=== PATIENT | female | born 1950 | race Caucasian/White ===

== ENCOUNTER 2018-07-15 14:26 | Outpatient (CLI) | payer MEDICARE, BC, SELFPAY ==
[2018-07-15 15:52] LABS: Abs Immature Grans 0.01 k/cumm (0.0-0.09); Absolute Basophil Count 0.07 k/cumm (0.0-0.2); Absolute Eosinophil Count 0.09 k/cumm (0.0-0.7); Absolute Lymphocyte Count 1.06 k/cumm (1.2-3.4); Basophils % 1.8; Eosinophils % 2.3; HCT 37.3 % (36.0-46.0); HGB 12.7 g/dL (12.0-15.5); Immature Grans % 0.3; Lymphocytes % 26.6; Mean Corpuscular Hemoglobin 33.2 pg (27.0-33.0); Mean Corpuscular Volume 97.6 fL (80-95); Mean Platelet Volume 10.8 fL (8.0-11.0); Platelet Count 156 x1000/uL (130-400); RBC 3.82 m/cumm (4.00-5.20); White Blood Cell Count 3.99 k/cumm (4.4-10.8)
[2018-07-15 15:54] LABS: Absolute Neutrophil Count 2.35 k/cumm (1.2-6.7)
== END 2018-07-15 14:46 ==
PROVIDERS: Visit Provider Internal Medicine Hematology & Oncology
DX: C50.919 Malignant neoplasm of unspecified site of unspecified female breast (principal)
CPT/HCPCS: 36415; 85025

== ENCOUNTER 2019-12-15 02:28 | Outpatient (RCR) | payer MEDICARE, BC, SELFPAY ==
[2019-12-15] MEDS: Denosumab 60 MG/ML SYR SC (11:55)
== END 2019-12-21 23:59 | disposition home or self-care (01) ==
LOC: INF 02:28
PROVIDERS: PCP Family Medicine; Visit Provider Family Medicine
DX: M81.8 Other osteoporosis without current pathological fracture (principal)
CPT/HCPCS: 96372; J0897

== ENCOUNTER 2020-02-27 12:58 | Outpatient (CLI) | payer MEDICARE, BC, SELFPAY ==
[2020-02-29 09:57] LABS: COVID-19 RT-PCR Result NEGATIVE (Negative)
== END 2020-02-27 13:18 ==
PROVIDERS: PCP Family Medicine; Visit Provider Family Medicine
DX: Z20.828 Contact with and (suspected) exposure to other viral communicable diseases (principal)
CPT/HCPCS: U0003

== ENCOUNTER 2020-06-13 03:00 | Outpatient (RCR) | payer MEDICARE, OTHER, SELFPAY ==
[2020-06-13] MEDS: Denosumab 60 MG/ML SYR SC (12:25)
== END 2020-06-20 23:59 | disposition home or self-care (01) ==
LOC: INF 03:00
PROVIDERS: PCP Family Medicine; Visit Provider Family Medicine
DX: M81.0 Age-related osteoporosis without current pathological fracture (principal)
CPT/HCPCS: 36415; 80053; 86304; 96372; 82378; 85025; 86300; J0897

== ENCOUNTER 2020-06-13 04:33 | Outpatient (CLI) | payer MEDICARE, OTHER, SELFPAY ==
[2020-06-13 12:20] LABS: Abs Immature Grans 0.01 10^3/uL (0.0-0.06); Absolute Basophil Count 0.07 10^3/uL (0.0-0.2); Absolute Eosinophil Count 0.12 10^3/uL (0.0-0.7); Absolute Lymphocyte Count 1.44 10^3/uL (1.2-3.4); Absolute Neutrophil Count 2.05 10^3/uL (1.2-6.7); Basophils % 1.7; Eosinophils % 2.9; HCT 38.3 % (36.0-46.0); Immature Grans % 0.2; Lymphocytes % 35.2; MCH 33.8 pg (27.0-33.0); MCHC 33.9 % (32.0-36.0); MCV 99.5 fL (80-95); Monocytes % 9.8; Neutrophils % 50.2; Nucleated RBC 0 %; Platelet Count 171 10^3/uL (130-400); RBC 3.85 10^6/uL (3.93-5.22); RDW-SD 47.6 fL; WBC 4.09 10^3/uL (4.4-10.8)
[2020-06-13 13:12] LABS: ALT 30 U/L (14-59); AST 26 U/L (15-37); Albumin 3.7 g/dL (3.4-5.0); Alkaline Phosphatase 82 U/L (46-116); Anion Gap 7.5 mmol/L (3-11); BUN 13 mg/dL (7-18); Bilirubin, Total 0.4 mg/dL (0.2-1.0); CO2 29.5 mmol/L (21.0-32.0); CREATININE 0.6 mg/dL (0.55-1.02); Calcium 9.8 mg/dL (8.5-10.1); Chloride 106 mmol/L (98-107); Glucose 81 mg/dL (74-106); Potassium 4.1 mmol/L (3.5-5.1); Sodium 143 mmol/L (136-145); Total Protein 6.9 g/dL (6.4-8.2)
[2020-06-13 18:33] LABS: CEA 0.6 ng/mL (See Note)
[2020-06-14 15:24] LABS: Cancer Ag 15-3 16 U/mL (<30)
== END 2020-06-13 04:34 | disposition home or self-care (01) ==
PROVIDERS: PCP Family Medicine; Visit Provider Family Medicine
DX: C50.911 Malignant neoplasm of unspecified site of right female breast (principal); M81.0 Age-related osteoporosis without current pathological fracture
CPT/HCPCS: 36415; 80053; 86304; 96372; 82378; 85025; 86300; J0897

== ENCOUNTER 2020-12-11 01:00 | Outpatient (RCR) | payer MEDICARE, OTHER, SELFPAY ==
[2020-12-11] MEDS: Denosumab 60 MG/ML SYR SC (13:18)
== END 2020-12-20 23:59 | disposition home or self-care (01) ==
LOC: INF 01:00
PROVIDERS: PCP Family Medicine; Visit Provider Family Medicine
DX: M81.8 Other osteoporosis without current pathological fracture (principal)
CPT/HCPCS: 96372; J0897

== ENCOUNTER 2021-06-11 01:48 | Outpatient (RCR) | payer MEDICARE, OTHER, SELFPAY ==
[2021-06-11] MEDS: Denosumab 60 MG/ML SYR SC (13:13)
== END 2021-06-20 23:59 | disposition home or self-care (01) ==
LOC: INF 01:48
PROVIDERS: PCP Family Medicine; Visit Provider Family Medicine
DX: M81.0 Age-related osteoporosis without current pathological fracture (principal)
CPT/HCPCS: 96372; J0897

== ENCOUNTER 2021-06-13 12:02 | Outpatient (CLI) | payer MEDICARE, OTHER, SELFPAY ==
[2021-06-13 16:18] LABS: ESR 7 mm/hr (0-30)
[2021-06-14 19:24] LABS: CRP, High Sensitivity 0.42 mg/L (See Note)
== END 2021-06-13 12:03 | disposition home or self-care (01) ==
LOC: LBO 12:03
PROVIDERS: PCP Family Medicine; Visit Provider Family Medicine
DX: R51.9 Headache, unspecified
CPT/HCPCS: 36415; 80061; 85652; 86141

== ENCOUNTER 2021-07-11 02:36 | Outpatient (CLI) | payer MEDICARE, OTHER, SELFPAY ==
[2021-07-11 10:23] LABS: Cholesterol 219 mg/dL (<200); HDL Cholesterol 96 mg/dL (40-60)
[2021-07-11 10:24] LABS: Triglyceride < 25 mg/dL (<150)
[2021-07-11 11:50] LABS: LDL CHOLESTEROL 104 mg/dL (<100)
== END 2021-07-11 02:37 | disposition home or self-care (01) ==
LOC: LBO 02:37
PROVIDERS: PCP Family Medicine; Referring Provider Family Medicine; Visit Provider Family Medicine
DX: E78.41 Elevated Lipoprotein(a) (principal)
CPT/HCPCS: 36415; 80061; 83721

== ENCOUNTER → 2021-10-07 00:06 | Outpatient (CLI) | payer MEDICARE, OTHER, SELFPAY ==
--- NOTE | 2021-10-07 11:00 | DI.NM_ITS ---
Exam(s) NM BONE SCAN WHOLE BODY GRP EXAM: NM BONE SCAN WHOLE BODY GRP CLINICAL HISTORY: H/O BREAST CA, SCLEROTIC LESION LT LOWER LOBE RIB ON CT. TECHNIQUE: Injected Dose: 25 mCi Tc-99m MDP Delayed Images: 2-3 hours. Whole body images, lateral and oblique images of the chest were performed . COMPARISON: Report from outside CT for cardiac calcium scoring 28 August 2021. No images were availabl e for comparison. FINDINGS: Symmetric axial uptake. Bilateral renal excretion is identified. Small focus of mildly increased acti vity located in the lower left lateral rib. This may correspond to the area of sclerosis seen on CT. No additional abnormal foci are present. IMPRESSION: 1. Single focus of mildly increased labeling a lower lateral left rib. This could be secondary to tr auma . Malignancy felt to be less likely. DATA REPOSITORY:
== END ==
PROVIDERS: PCP Family Medicine; Visit Provider Internal Medicine Hematology & Oncology
DX: Z85.3 Personal history of malignant neoplasm of breast (principal); R91.8 Other nonspecific abnormal finding of lung field
CPT/HCPCS: 78306

== ENCOUNTER 2021-10-15 16:11 | Outpatient (REF) | payer MEDICARE, OTHER, SELFPAY ==
[2021-10-17 11:01] LABS: COVID-19 RT-PCR UVMMC Result Negative (Negative)
== END 2021-10-15 16:12 | disposition home or self-care (01) ==
LOC: LBN 16:11
PROVIDERS: PCP Family Medicine; Visit Provider Family Medicine
DX: Z20.822 Contact with and (suspected) exposure to COVID-19 (principal)
CPT/HCPCS: U0003

== ENCOUNTER 2021-12-10 01:19 | Outpatient (RCR) | payer MEDICARE, OTHER, SELFPAY ==
[2021-12-10] MEDS: Denosumab 60 MG/ML SYR SC (14:05)
== END 2021-12-20 23:59 | disposition home or self-care (01) ==
LOC: INF 01:19
PROVIDERS: PCP Family Medicine; Visit Provider Family Medicine
DX: M81.0 Age-related osteoporosis without current pathological fracture (principal)
CPT/HCPCS: 96372; J0897

== ENCOUNTER → 2022-04-28 12:45 | Outpatient (BNVA) | payer MEDICARE, OTHER, SELFPAY | PROVIDERS: PCP Family Medicine; Referring Provider Family Medicine; Visit Provider Internal Medicine Cardiovascular Disease | DX: I51.89 Other ill-defined heart diseases (principal); R94.39 Abnormal result of other cardiovascular function study; I34.1 Nonrheumatic mitral (valve) prolapse | CPT/HCPCS: 93005; 99203 ==

== ENCOUNTER 2022-04-28 12:47 | Outpatient (CLI) | payer MEDICARE, OTHER, SELFPAY ==
--- NOTE | 2022-04-28 12:45 | RT.EKG_ITS ---
APPROVED REPORT Exam: Resting ECG Reason for Exam: evaluation of cardiac staus Patient Location: O HR:72 bpm ECG Measurements Heart Rate 72 AXIS VT 173 P 56 QRSd 84 QRS 43 QT 500 T 72 QTc 548 Conclusion Sinus rhythm...normal P axis, V-rate 50- 99 Nonspecific T abnormalities, anterior leads...T <-0.10mV, V2-V4 Prolonged QT interval...QTc >500mS Diagnostic inferior Q waves
== END 2022-04-28 12:48 | disposition home or self-care (01) ==
LOC: DI.CARD 12:48
PROVIDERS: PCP Family Medicine; Visit Provider Internal Medicine Cardiovascular Disease
DX: I51.89 Other ill-defined heart diseases (principal)
CPT/HCPCS: 93010

== ENCOUNTER 2022-05-06 02:12 | Outpatient (CLI) | payer MEDICARE, OTHER, SELFPAY ==
[2022-05-06 13:49] LABS: Abs Immature Grans 0.01 10^3/uL (0.0-0.06); Absolute Eosinophil Count 0.23 10^3/uL (0.0-0.7); Absolute Lymphocyte Count 1.86 10^3/uL (1.2-3.4); Absolute Monocyte Count 0.61 10^3/uL (0.1-0.8); Absolute Neutrophil Count 2.94 10^3/uL (1.2-6.7); Basophils % 1.7; HCT 38.3 % (36.0-46.0); HGB 13.1 g/dL (11.2-15.7); Immature Grans % 0.2; Lymphocytes % 32.3; MCHC 34.2 % (32.0-36.0); MCV 97 fL (80-95); MPV 10.6 fL (8.0-11.0); Monocytes % 10.6; Neutrophils % 51.2; Platelet Count 167 10^3/uL (130-400); RBC 3.97 10^6/uL (3.93-5.22); RDW 12.7 % (11.7-14.6); RDW-SD 45.1 fL; WBC 5.75 10^3/uL (4.4-10.8)
[2022-05-06 14:03] LABS: PTT Activated 24.8 sec (21.5-31.9); Prothrombin Time 10.1 sec (9.3-11.0)
[2022-05-06 14:25] LABS: Anion Gap 7.6 mmol/L (3-11); BUN 12 mg/dL (7-18); CO2 27.4 mmol/L (21.0-32.0); CREATININE 0.7 mg/dL (0.55-1.02); Chloride 104 mmol/L (98-107); Estimated GFR 93.56 (mL/min/1.73m2); Glucose 101 mg/dL (74-106); Sodium 139 mmol/L (136-145)
== END 2022-05-06 02:13 | disposition home or self-care (01) ==
LOC: LBO 02:12
PROVIDERS: PCP Family Medicine; Visit Provider Internal Medicine Cardiovascular Disease
DX: I34.1 Nonrheumatic mitral (valve) prolapse (principal); I51.89 Other ill-defined heart diseases; R94.39 Abnormal result of other cardiovascular function study; E78.5 Hyperlipidemia, unspecified; R53.83 Other fatigue; Z85.3 Personal history of malignant neoplasm of breast; Z01.812 Encounter for preprocedural laboratory examination; Z01.810 Encounter for preprocedural cardiovascular examination; R23.3 Spontaneous ecchymoses
CPT/HCPCS: 36415; 80051; 82947; 84520; 82565; 85025; 85610; 85730

== ENCOUNTER 2022-06-10 02:09 | Outpatient (RCR) | payer MEDICARE, OTHER, SELFPAY ==
[2022-06-10] MEDS: Denosumab 60 MG/ML SYR SC (14:03)
== END 2022-06-20 23:59 | disposition home or self-care (01) ==
LOC: INF 02:09
PROVIDERS: PCP Family Medicine; Visit Provider Family Medicine
DX: M81.0 Age-related osteoporosis without current pathological fracture (principal)
CPT/HCPCS: 96372; J0897

== ENCOUNTER 2022-12-15 01:56 | Outpatient (RCR) | payer MEDICARE, OTHER, SELFPAY ==
[2022-12-15] MEDS: Denosumab 60 MG/ML SYR SC (13:11)
== END 2022-12-20 23:59 | disposition home or self-care (01) ==
LOC: INF 01:56
PROVIDERS: PCP Family Medicine; Visit Provider Family Medicine
DX: M81.0 Age-related osteoporosis without current pathological fracture (principal)
CPT/HCPCS: 96372; J0897

== ENCOUNTER 2023-06-15 04:53 | Outpatient (RCR) | payer MEDICARE, OTHER, SELFPAY ==
[2023-06-15] MEDS: Denosumab 60 MG/ML SYR SC (14:03)
== END 2023-06-21 23:59 | disposition home or self-care (01) ==
LOC: INF 04:53
PROVIDERS: PCP Family Medicine; Visit Provider Family Medicine
DX: M81.0 Age-related osteoporosis without current pathological fracture (principal)
CPT/HCPCS: 96372; J0897

== ENCOUNTER → 2023-08-27 14:39 | Outpatient (CLI) | payer MEDICARE, OTHER, SELFPAY ==
--- NOTE | 2023-08-27 15:13 | DI.RAD_ITS ---
Exam(s) XR FOOT RT COMPLETE EXAM: XR FOOT RT COMPLETE CLINICAL HISTORY: foot pain, dorsal foot. M79.671. TECHNIQUE: 2D digital imaging was performed. COMPARISON: No exams were available for comparison FINDINGS: 3 views There is a nondisplaced fracture line in the proximal 3rd of the 2nd metatarsal. There is no obvious diastasis of the Lisfranc joint nor of the other tarsometatarsal joints and no other fractures ident ified. Hallux valgus is noted. Only mild degenerative changes in the great toe metatarsophalangeal joint. Bone density is normal. No osseous lesions. IMPRESSION: There is nondisplaced transverse fracture line in the proximal 3rd of the 2nd metatarsal. DATA REPOSITORY: RADIATION DOSE DELIVERED:
== END ==
PROVIDERS: PCP Family Medicine; Visit Provider Physician Assistant
DX: S92.324A Nondisplaced fracture of second metatarsal bone, right foot, initial encounter for closed fracture (principal); X58.XXXA Exposure to other specified factors, initial encounter
CPT/HCPCS: 73630

== ENCOUNTER → 2023-09-03 13:35 | Outpatient (BNVA) | payer MEDICARE, OTHER, SELFPAY | PROVIDERS: PCP Family Medicine; Referring Provider Family Medicine; Visit Provider Podiatrist | DX: S92.324A Nondisplaced fracture of second metatarsal bone, right foot, initial encounter for closed fracture (principal); S92.334A Nondisplaced fracture of third metatarsal bone, right foot, initial encounter for closed fracture; M79.671 Pain in right foot; R60.9 Edema, unspecified; X58.XXXA Exposure to other specified factors, initial encounter | CPT/HCPCS: 99213 ==

== ENCOUNTER → 2023-09-22 02:15 | Outpatient (CLI) | payer MEDICARE, OTHER, SELFPAY ==
--- NOTE | 2023-09-22 08:00 | DI.RAD_ITS ---
Exam(s) XR FOOT RT COMPLETE EXAM: XR FOOT RT COMPLETE CLINICAL HISTORY: Monitor for healing,RT FOOT PAIN. TECHNIQUE: 2D digital imaging was performed. COMPARISON: CR XR FOOT RT COMPLETE from 08/27/2023 FINDINGS: 3 views The previously described transverse fracture in the proximal aspect of the 2nd metatarsal is again no alex. Fracture line is still evident and there is now some callus formation. No displacement. No ad ditional fractures evident. Hallux valgus again noted. No osseous lesions. No radiopaque foreign bodies. IMPRESSION: Fracture proximal 2nd metatarsal again noted. Some callus formation evident. Fracture line is still evident and without further displacement. Hallux valgus again noted DATA REPOSITORY: RADIATION DOSE DELIVERED:
== END ==
PROVIDERS: PCP Family Medicine; Visit Provider Podiatrist
DX: S92.334A Nondisplaced fracture of third metatarsal bone, right foot, initial encounter for closed fracture (principal); S92.324A Nondisplaced fracture of second metatarsal bone, right foot, initial encounter for closed fracture; M79.671 Pain in right foot; R60.9 Edema, unspecified; L84 Corns and callosities; M20.10 Hallux valgus (acquired), unspecified foot; S92.321A Displaced fracture of second metatarsal bone, right foot, initial encounter for closed fracture
CPT/HCPCS: 73630

== ENCOUNTER → 2023-10-21 01:08 | Outpatient (CLI) | payer MEDICARE, OTHER, SELFPAY ==
--- NOTE | 2023-10-21 13:35 | DI.RAD_ITS ---
Exam(s) XR FOOT RT COMPLETE EXAM: XR FOOT RT COMPLETE CLINICAL HISTORY: Consolidation?, NONDISPLACED FX 3RD MT BONE RT FOOT, PAIN, EDEMA. TECHNIQUE: 2D digital imaging was performed. Three views. COMPARISON: CR XR FOOT RT COMPLETE from 09/22/2023 FINDINGS: BONES: Continued healing at fracture of the base of the 2nd metatarsal. No new fracture is present. No bony destructive lesion is seen. JOINTS: No dislocation present. Hallux valgus again noted peer SOFT TISSUE: Normal. IMPRESSION: continued healing at 2nd metatarsal fracture. DATA REPOSITORY: RADIATION DOSE DELIVERED:
== END ==
PROVIDERS: PCP Family Medicine; Visit Provider Podiatrist
DX: S92.334A Nondisplaced fracture of third metatarsal bone, right foot, initial encounter for closed fracture (principal); S92.324A Nondisplaced fracture of second metatarsal bone, right foot, initial encounter for closed fracture; M79.671 Pain in right foot; R60.9 Edema, unspecified
CPT/HCPCS: 73630

== ENCOUNTER 2023-11-16 02:34 | Outpatient (CLI) | payer MEDICARE, OTHER, SELFPAY ==
--- NOTE | 2023-11-16 13:24 | DI.RAD_ITS ---
Exam(s) XR FOOT RT COMPLETE EXAM: XR FOOT RT COMPLETE CLINICAL HISTORY: fracture,S92.324A,S92.334A. TECHNIQUE: 2D digital imaging was performed. Three views. COMPARISON: CR XR FOOT RT COMPLETE from 10/21/2023 FINDINGS: BONES: Stable alignment of fracture at the proximal 2nd metatarsal. Increased callus formation. No new abnormalities. No bony destructive lesion is seen. JOINTS: No dislocation present. Mild degenerative changes. Hallux valgus. SOFT TISSUE: Normal. IMPRESSION: Continued healing at 2nd metatarsal fracture. DATA REPOSITORY: RADIATION DOSE DELIVERED:
== END 2023-11-16 02:54 ==
LOC: DI 02:34
PROVIDERS: PCP Family Medicine; Visit Provider Podiatrist
DX: M79.671 Pain in right foot
CPT/HCPCS: 73630

== ENCOUNTER 2024-01-06 08:57 | Outpatient (RCR) | payer MEDICARE, OTHER, SELFPAY ==
[2024-01-06] MEDS: Denosumab 60 MG/ML SYR SC (14:28)
== END 2024-01-21 23:59 | disposition home or self-care (01) ==
LOC: INF 08:57
PROVIDERS: PCP Family Medicine; Visit Provider Family Medicine
DX: M81.0 Age-related osteoporosis without current pathological fracture (principal)
CPT/HCPCS: 96372; J0897

== ENCOUNTER 2024-01-21 12:24 | Outpatient (CLI) | payer MEDICARE, OTHER, SELFPAY ==
--- NOTE | 2024-01-21 08:00 | DI.RAD_ITS ---
Exam(s) XR FOOT RT COMPLETE EXAM: XR FOOT RT COMPLETE CLINICAL HISTORY: Right foot pain,m79.671. TECHNIQUE: 2D digital imaging was performed. Three views. COMPARISON: CR XR FOOT RT COMPLETE from 11/16/2023 FINDINGS: BONES: Continued healing noted at the fracture of the base of the 2nd metatarsal. No new fracture is present. No bony destructive lesion is seen. JOINTS: No dislocation present. First metatarsal varus and hallux valgus. Varus angulation also not ed at the 2nd through 4th MTP joints. Mild degenerative changes 1st MTP joint. SOFT TISSUE: Normal. IMPRESSION: Healing fracture at the base of the 2nd metatarsal DATA REPOSITORY: RADIATION DOSE DELIVERED:
== END 2024-01-21 12:44 ==
LOC: DI 12:28
PROVIDERS: PCP Family Medicine; Visit Provider Podiatrist
DX: S92.321D Displaced fracture of second metatarsal bone, right foot, subsequent encounter for fracture with routine healing (principal); X58.XXXD Exposure to other specified factors, subsequent encounter
CPT/HCPCS: 73630

== ENCOUNTER → 2024-02-02 10:37 | Outpatient (BNVA) | payer MEDICARE, OTHER, SELFPAY | PROVIDERS: PCP Family Medicine; Referring Provider Family Medicine; Visit Provider Podiatrist | DX: S92.334A Nondisplaced fracture of third metatarsal bone, right foot, initial encounter for closed fracture (principal); S92.324A Nondisplaced fracture of second metatarsal bone, right foot, initial encounter for closed fracture; M79.671 Pain in right foot; R60.0 Localized edema; G90.521 Complex regional pain syndrome I of right lower limb; M79.661 Pain in right lower leg; L03.115 Cellulitis of right lower limb; E79.0 Hyperuricemia without signs of inflammatory arthritis and tophaceous disease; M81.0 Age-related osteoporosis without current pathological fracture; X58.XXXA Exposure to other specified factors, initial encounter | CPT/HCPCS: 36415; 82306; 85652; 99214; 73630; 83036; 84550; 85025; 86140; 93971 ==

== ENCOUNTER 2024-02-02 13:41 | Outpatient (CLI) | payer MEDICARE, OTHER, SELFPAY ==
--- NOTE | 2024-02-02 11:45 | DI.RAD_ITS ---
Exam(s) XR FOOT RT COMPLETE EXAM: XR FOOT RT COMPLETE CLINICAL HISTORY: pain in right foot, nondisplaced fx of 3rd metatarsal bone, S92.334A. TECHNIQUE: 2D digital imaging was performed. Three views. COMPARISON: CR XR FOOT RT COMPLETE from 08/27/2023 CR XR FOOT RT COMPLETE from 09/22/2023 CR XR FOOT RT COMPLETE from 10/21/2023 CR XR FOOT RT COMPLETE from 11/16/2023 CR XR FOOT RT COMPLETE from 01/21/2024 FINDINGS: BONES: There has been continued healing at the previously noted fracture at the proximal 2nd metatars al. There is a new nondisplaced fracture extending transversely through the base of the 3rd metatars al. No bony destructive lesion is seen. JOINTS: No dislocation present. Varus deformities at the 1st through 4th MTP joints again noted. SOFT TISSUE: Normal. IMPRESSION: New nondisplaced fracture base of 3rd metatarsal. Continued healing of 2nd metatarsal fracture. DATA REPOSITORY: RADIATION DOSE DELIVERED:
--- NOTE | 2024-02-02 11:45 | DI.US_ITS ---
Exam(s) US LOWER EXTREMITY VENOUS RT EXAM: US LOWER EXTREMITY VENOUS RT CLINICAL HISTORY: DVT, I82.409. TECHNIQUE: Lower extremity venous ultrasound performed using grayscale, color-flow, and spectral Do ppler analysis. COMPARISON: CR XR FOOT RT COMPLETE from 02/02/2024 FINDINGS: The common femoral, femoral and popliteal veins demonstrate normal compressibility, augmentation, and color Doppler. The posterior tibial veins are patent. No saphenous vein thrombosis or other superfi cial venous thrombosis is seen. The top of the foot was also scanned in the area of the patient's pa in. No thrombus is identified. No hematoma or Cortez's cyst is seen. IMPRESSION: Negative lower extremity ultrasound. No evidence of DVT. DATA REPOSITORY:
[2024-02-02 12:25] LABS: Abs Immature Grans 0.01 10^3/uL (0.0-0.06); Absolute Basophil Count 0.08 10^3/uL (0.0-0.2); Absolute Eosinophil Count 0.18 10^3/uL (0.0-0.7); Absolute Lymphocyte Count 1.67 10^3/uL (1.2-3.4); Absolute Monocyte Count 0.72 10^3/uL (0.1-0.8); Absolute Neutrophil Count 3.03 10^3/uL (1.2-6.7); Basophils % 1.4 %; Eosinophils % 3.2 %; HCT 39.6 % (36.0-46.0); HGB 13.3 g/dL (11.2-15.7); Immature Grans % 0.2 %; Lymphocytes % 29.3 %; MCH 33.2 pg (27.0-33.0); MCHC 33.6 % (32.0-36.0); MCV 99 fL (80-95); MPV 10.7 fL (8.0-11.0); Monocytes % 12.7 %; Neutrophils % 53.2 %; Platelet Count 191 10^3/uL (130-400); RBC 4.01 10^6/uL (3.93-5.22); RDW 13.5 % (11.7-14.6); RDW-SD 49.3 fL; WBC 5.69 10^3/uL (4.4-10.8)
[2024-02-02 12:30] LABS: ESR 9 mm/hr (0-30)
[2024-02-02 12:56] LABS: Uric Acid 3.6 mg/dL (2.6-6.0)
[2024-02-02 12:58] LABS: C-Reactive Protein < 0.50 mg/dL (<or=0.5)
[2024-02-02 17:36] LABS: Vitamin D 25 Total 57.5 ng/mL (30-100)
[2024-02-02 17:48] LABS: Hemoglobin A1C 5.6 % (<5.7)
== END 2024-02-02 13:42 | disposition home or self-care (01) ==
LOC: LBO 13:50
PROVIDERS: PCP Family Medicine; Visit Provider Podiatrist
DX: E79.0 Hyperuricemia without signs of inflammatory arthritis and tophaceous disease (principal); L03.90 Cellulitis, unspecified; S92.334A Nondisplaced fracture of third metatarsal bone, right foot, initial encounter for closed fracture; Z13.228 Encounter for screening for other metabolic disorders; M81.0 Age-related osteoporosis without current pathological fracture
CPT/HCPCS: 36415; 82306; 85652; 73630; 83036; 84550; 85025; 86140; 93971

== ENCOUNTER 2024-02-22 02:23 | Outpatient (CLI) | payer MEDICARE, OTHER, SELFPAY ==
--- NOTE | 2024-02-22 07:45 | DI.RAD_ITS ---
Exam(s) XR FOOT RT COMPLETE EXAM: XR FOOT RT COMPLETE CLINICAL HISTORY: ? consolidation,STRESS FX,M84.30XA. TECHNIQUE: 2D digital imaging was performed. Three views. COMPARISON: CR XR FOOT RT COMPLETE from 02/02/2024 FINDINGS: BONES: Continued healing of fractures at the bases of the 2nd and 3rd metatarsals which are unchanged in alignment.. No acute fracture is present. No bony destructive lesion is seen. JOINTS: No dislocation present. Hallux valgus is well as valgus deviation of the 2nd through 4th toe s. SOFT TISSUE: Normal. IMPRESSION: Stable fracture alignment. DATA REPOSITORY: RADIATION DOSE DELIVERED:
== END 2024-02-22 02:43 ==
LOC: DI 02:23
PROVIDERS: PCP Family Medicine; Visit Provider Podiatrist
DX: S92.321D Displaced fracture of second metatarsal bone, right foot, subsequent encounter for fracture with routine healing (principal); X58.XXXD Exposure to other specified factors, subsequent encounter
CPT/HCPCS: 73630

== ENCOUNTER 2024-03-29 16:07 | Outpatient (CLI) | payer MEDICARE, OTHER, SELFPAY ==
--- NOTE | 2024-03-29 15:30 | DI.RAD_ITS ---
Exam(s) XR FOOT RT COMPLETE EXAM: XR FOOT RT COMPLETE CLINICAL HISTORY: Nondisplaced fx of 3rd metatarsal bone, rt foot, Consolidation?. TECHNIQUE: 2D digital imaging was performed. COMPARISON: CR XR FOOT RT COMPLETE from 02/22/2024 FINDINGS: 3 views Again noted are the healing transverse fractures at the bases of the 2nd and 3rd metatarsals. Some f urther he healing noted but fracture lines are still evident. No significant displacement. No diast asis of the main Lisfranc joint. No new additional fractures. Hallux valgus of the great toes again noted. IMPRESSION: Healing nondisplaced fractures at the bases of the 2nd and 3rd metatarsals. Hallux valgus DATA REPOSITORY: RADIATION DOSE DELIVERED:
== END 2024-03-29 16:27 ==
LOC: DI 16:08
PROVIDERS: PCP Family Medicine; Visit Provider Podiatrist
DX: S92.334D Nondisplaced fracture of third metatarsal bone, right foot, subsequent encounter for fracture with routine healing (principal); X58.XXXD Exposure to other specified factors, subsequent encounter
CPT/HCPCS: 73630

== ENCOUNTER → 2024-03-30 14:30 | Outpatient (BNVA) | payer MEDICARE, OTHER, SELFPAY | PROVIDERS: PCP Family Medicine; Referring Provider Family Medicine; Visit Provider Podiatrist | DX: S92.324D Nondisplaced fracture of second metatarsal bone, right foot, subsequent encounter for fracture with routine healing (principal); S92.334D Nondisplaced fracture of third metatarsal bone, right foot, subsequent encounter for fracture with routine healing; X58.XXXD Exposure to other specified factors, subsequent encounter; L03.115 Cellulitis of right lower limb; R60.0 Localized edema | CPT/HCPCS: 99213 ==

== ENCOUNTER 2024-05-03 02:37 | Outpatient (CLI) | payer MEDICARE, OTHER, SELFPAY ==
--- NOTE | 2024-05-03 14:18 | DI.RAD_ITS ---
Exam(s) XR FOOT RT COMPLETE EXAM: XR FOOT RT COMPLETE CLINICAL HISTORY: ? healed,stress fx 2nd and 3rd metatarsal bone,S92.30XA,S92.324a. TECHNIQUE: 2D digital imaging was performed. Three views. COMPARISON: CR XR FOOT RT COMPLETE from 03/29/2024 FINDINGS: BONES: There has been continued healing at the fractures at the bases of the 2nd and 3rd metatarsals. No acute fracture is present. No bony destructive lesion is seen. JOINTS: No dislocation present. Valgus deviation of the 2nd through 4th toes is again noted. SOFT TISSUE: Normal. IMPRESSION: Continued healing of 2nd and 3rd metatarsal fractures. DATA REPOSITORY: RADIATION DOSE DELIVERED:
== END 2024-05-03 02:57 ==
LOC: DI 02:37
PROVIDERS: PCP Family Medicine; Visit Provider Podiatrist
DX: S92.334D Nondisplaced fracture of third metatarsal bone, right foot, subsequent encounter for fracture with routine healing; S92.324D Nondisplaced fracture of second metatarsal bone, right foot, subsequent encounter for fracture with routine healing; X58.XXXD Exposure to other specified factors, subsequent encounter
CPT/HCPCS: 73630

== ENCOUNTER → 2024-06-28 14:17 | Outpatient (BNVA) | payer MEDICARE, OTHER, SELFPAY | PROVIDERS: PCP Family Medicine; Referring Provider Family Medicine; Visit Provider Podiatrist | DX: L60.0 Ingrowing nail (principal); S92.334D Nondisplaced fracture of third metatarsal bone, right foot, subsequent encounter for fracture with routine healing; S92.324D Nondisplaced fracture of second metatarsal bone, right foot, subsequent encounter for fracture with routine healing; L03.115 Cellulitis of right lower limb; R60.0 Localized edema; M77.41 Metatarsalgia, right foot | CPT/HCPCS: 99213 ==

== ENCOUNTER 2024-07-07 00:57 | Outpatient (RCR) | payer MEDICARE, OTHER, SELFPAY ==
[2024-07-07] MEDS: Denosumab 60 MG/ML SYR SC (14:10)
== END 2024-07-20 23:59 | disposition home or self-care (01) ==
LOC: INF 00:57
PROVIDERS: PCP Family Medicine; Visit Provider Family Medicine
DX: M81.0 Age-related osteoporosis without current pathological fracture (principal)
CPT/HCPCS: 96372; J0897

== ENCOUNTER 2025-01-13 00:05 | Outpatient (RCR) | payer MEDICARE, OTHER, SELFPAY ==
[2025-01-13] MEDS: Denosumab 60 MG/ML SYR SC (14:26)
== END 2025-01-20 23:59 | disposition home or self-care (01) ==
LOC: INF 00:05
PROVIDERS: PCP Family Medicine; Visit Provider Family Medicine
DX: M81.0 Age-related osteoporosis without current pathological fracture (principal)
CPT/HCPCS: 96372; J0897

== ENCOUNTER 2025-03-19 18:47 | Emergency (ER) | payer MEDICARE, OTHER, SELFPAY ==
[2025-03-19 18:48] VITALS: BP 118/57; PULSE 75; RESP 18; O2SAT 99
--- NOTE | 2025-03-19 18:57 | W.ED.GENAD ---
Discharge Plan Disposition Patient Disposition: Home Condition: Stable Discharge Details Clinical Impression: Epistaxis Primary Care Provider: Hi Emmanuel ED Provider: Jorge L Mckee Home Meds and New Rx's Prescriptions: Continued Probiotic Pearls Complete 1 billion cell capsule,delayed release(DR/EC) 1 cap PO DAILY Enzyme Digest Capsule 2 cap PO DAILY Rx Instructions: administer with food; swallow whole; do not crush/chew/dissolve/break/cut L-Lysene PO astragalus root 470 mg capsule PO marshmallow root PO stef berries PO burdock root 500 mg capsule PO turmeric root extract 500 mg tablet 1,000 mg PO DAILY aloe vera 5,000 mg capsule PO Complete Pierson 700-1,500 mg-mg capsule PO MSM powder PO Oregeno oil PO EB-S4 400 mg-83.3 mcg -166.7 mg capsule PO Patient Comments: Stronger version of calcium citrate, magnesium, Vitamins D & zinc. vitamin B complex Capsule 1 cap PO DAILY folic acid 400 mcg tablet 0.4 mg PO DAILY Prolia 60 mg/mL syringe 60 mg subcut [id number] CESIA-e 200 mg tablet 200 mg PO DAILY epinephrine [EpiPen 2-Rico] 0.3 mg/0.3 mL auto-injector 0.3 mg IM Q5-15M PRN (Reason: hypersensitivity reaction) Qty: 2 6RF Rx Instructions: do not exceed 3 doses per episode rosuvastatin 5 mg tablet 5 mg PO DAILY Qty: 90 3RF letrozole 2.5 mg tablet 2.5 mg PO DAILY Capsule #1 Capsule 2 cap PO BID gymnema extract 500 mg capsule 500 mg PO BID Discharge Instructions Instructions: Humidifiers, Nosebleeds ED Additional Instructions: You were seen in the emergency department. Nosebleed, we checked her hemoglobin is stable, your bleed was well-controlled on the way here by EMS with a TXA soaked gauze, I provided you with a nasal plug to use should you continue to bleed, we observed you for a time here with no resumption of bleeding so it is reasonable to go home, please do not disturb your nose, do not blow your nose, do not pick your nose, you may use Afrin once in the morning, try to use humidifiers around the home, return to the ED for any uncontrollable nosebleeding. Stand Alone Forms: Portal Information Referrals: Hi Emmanuel DO [Primary Care Provider, Medicine] HPI General Date/Time Provider Initiated Documentation: 03/19/25 18:48. HPI Narrative: 74 year-old female presents to ED today by EMS with a chief complaint of epistaxis, third episode this week, with onset around 1705 today- EMS described it as severe gushing, lots of blood on scene. Quality described as resolved bleeding on arrival, denies dizziness, no radiation to paleness, dizziness, bright red spurting blood, patient endorses that they have been sleeping in their upstairs guest bedroom and it is a lot hotter and dryer up there with the heat up to the 80s due to her 's age. Severity is described as severe for level bleeding. Palliating factors include I advised EMS and route to soak a 4 x 4 gauze in 500 of TXA which resolved the bleeding by the time of arrival. Provoking factors include made worse when she expelled a large clot. Patient not anticoagulated. Related Data Home Medications ?Medication ?Instructions ?Recorded ?Confirmed letrozole 2.5 mg tablet 2.5 mg PO DAILY 06/13/19 03/19/25 folic acid 400 mcg tablet 0.4 mg PO DAILY 10/15/21 03/19/25 vitamin B complex 1 cap PO DAILY 10/15/21 03/19/25 L-Lysene PO 12/02/21 01/05/25 MSM powder PO 12/02/21 01/05/25 Oregeno oil PO 12/02/21 01/05/25 aloe vera 5,000 mg capsule mg PO 12/02/21 01/05/25 astragalus root 470 mg capsule mg PO 12/02/21 01/05/25 burdock root 500 mg capsule mg PO 12/02/21 01/05/25 digestive enzymes (Enzyme Digest 2 cap PO DAILY 12/02/21 03/19/25 capsule) stef berries PO 12/02/21 01/05/25 lactobacillus combo no.13 1 1 cap PO DAILY 12/02/21 03/19/25 billion cell capsule,delayed release (Probiotic Pearls Complete) marshmallow root PO 12/02/21 01/05/25 omega 3,5,6,7,9 combination no.1 cap PO 12/02/21 01/05/25 700 mg-salmon oil 1,500 mg capsule (Complete Pierson) turmeric root extract 500 mg tablet 1,000 mg PO DAILY 12/02/21 03/19/25 denosumab 60 mg/mL subcutaneous 60 mg subcut [id number] 04/28/22 03/19/25 syringe (Prolia) s-adenosylmethionine 200 mg tablet 200 mg PO DAILY liver support 08/06/23 03/19/25 (CESIA-e) calcium 400 mg-vit D3 83.3 cap PO osteoperosis 02/15/24 01/05/25 mcg-magnesium 166.7 mg-zinc 16.7 mg capsule (EB-S4) epinephrine 0.3 mg/0.3 mL 0.3 mg (0.3 mL) IM Q5-15M PRN 01/05/25 03/19/25 injection, auto-injector (EpiPen hypersensitivity reaction #2 ea 2-Rico) rosuvastatin 5 mg tablet 5 mg PO DAILY #90 tabs 01/05/25 03/19/25 gelatin capsules (empty) (Capsule 2 cap PO BID 03/19/25 03/19/25 #1 capsule) gymnema extract 500 mg capsule 500 mg PO BID 03/19/25 03/19/25 Previous Rx's ?Medication ?Instructions ?Recorded epinephrine 0.3 mg/0.3 mL 0.3 mg (0.3 mL) IM Q5-15M PRN 01/05/25 injection, auto-injector (EpiPen hypersensitivity reaction #2 ea 2-Rico) rosuvastatin 5 mg tablet 5 mg PO DAILY #90 tabs 01/05/25 Allergies Allergy/AdvReac Type Severity Reaction Status Date / Time Penicillins Allergy Intermediate Swelling Verified 03/19/25 19:01 phenylbutazone (From Allergy Intermediate flu-like Verified 03/19/25 19:01 Butazolidin) symptoms shellfish derived Allergy Intermediate Rash, Verified 03/19/25 19:01 Hives, Throat Swelling General Stated Complaint: Epistaxis MARVA: 4 Review of Systems All systems reviewed & are unremarkable except as noted in HPI and below Exam Narrative Exam Narrative: GENERAL APPEARANCE: Well-nourished, non-toxic, awake and alert, atraumatic, no acute distress. SKIN: Warm, pink, dry, intact, without rashes/lesions/ulcerations. HEAD: Normocephalic, atraumatic, normal hair distribution for gender/age. EYES: Normal conjunctiva, no exudates on lids/lashes. ENT: Nares patent, no circumoral cyanosis, no facial swelling, dried blood around the naris, tiny clot stuck to the posterior oropharynx but no wheezing down the back of the throat NECK: Supple, trachea midline, painless cervical ROM. LUNGS/CHEST: Non-labored respirations, normal A/P diameter, symmetrical expansion, no chest wall deformity HEART (CV/PV): No peripheral edema, no JVD. ABDOMEN: Soft, non-distended, no guarding. MSK: Normal ROM, no swelling/deformity to bilateral UEs or LEs, moving all extremities without weakness, no cyanosis, spine midline without tenderness, normal curvature. NEURO: Mental Status AAOx4 - alert to person, place, time, events No facial droop, no forehead involvement. Motor: No focal weakness - strength 5/5 in bilateral UEs and LEs, proximal and distal, symmetric. Sensory: sensation intact to light touch globally. Gait normal: patient ambulated without ataxia into ED room. PSYCH: euthymic, cooperative, pleasant, appropriate speech Course Vital Signs Vital signs: Vital Signs Pulse 75 03/19/25 18:48 Respiratory Rate 18 03/19/25 18:48 Blood Pressure 118/57 L 03/19/25 18:48 Pulse Oximetry 99 03/19/25 18:48 Pulse 75 03/19/25 18:48 Respiratory Rate 18 03/19/25 18:48 Blood Pressure 118/57 L 03/19/25 18:48 Blood Pressure Position Sitting 03/19/25 18:48 Pulse Oximetry 99 03/19/25 18:48 Oxygen Delivery Method Room Air 03/19/25 18:48 Oxygen Flow Rate 0 03/19/25 18:48 Pain Level 0 03/19/25 18:48 Medical Decision Making This dictation utilizes [id number] dictation software and may contain unedited grammatical errors. 74 year-old female presents to ED today by EMS with a chief complaint of epistaxis, third episode this week, with onset around 1705 today- EMS described it as severe gushing, lots of blood on scene. Quality described as resolved bleeding on arrival, denies dizziness, no radiation to paleness, dizziness, bright red spurting blood, patient endorses that they have been sleeping in their upstairs guest bedroom and it is a lot hotter and dryer up there with the heat up to the 80s due to her 's age. Severity is described as severe for level bleeding. Palliating factors include I advised EMS and route to soak a 4 x 4 gauze in 500 of TXA which resolved the bleeding by the time of arrival. Provoking factors include made worse when she expelled a large clot. Patients' medical history: Noncontributory, no history of bleeding disorders. Family and social history: Noncontributory. Pertinent exam findings / vital signs include resolved bleeding on arrival with dried nares around the left nare, tiny clot stuck to the posterior oropharynx, no oozing down the throat. Differential / pathologies of concern include epistaxis. Diagnostic studies of: - H&H-no anemia. Interventions of: - Remove the packing and administered 1 spray of Afrin, no resumption of bleeding. ED Course/Assessment/Plan: 74-year-old female presents by EMS with severe nosebleeds for the past 3 days, I did give medical control to EMS to soak a 4 x 4 and TXA which resolved the bleeding by time of arrival, we checked her hemoglobin and there is no signs of anemia or significant hemorrhage, we removed the 4 x 4 packing and administered 1 spray of Afrin without resumption of bleeding, I counseled her not to disturb her nose, do not blow her nose or pick her nose this evening provided 1 cotton nasal plug should she resume bleeding to stuff that in her nostril and apply nasal clamp, advised 1 spray of Afrin in the morning and using humidifiers around the home with strict return criteria for any uncontrolled nosebleeding. Findings not consistent with severe hemorrhage, active bleeding. Disposition of epistaxis. Patient verbalized understanding of the plan and return to ED criteria and engaged in shared decision making. Medical Records Medical records reviewed: Yes I reviewed the patient's medical records. PFSH All Active Problems (Updated 03/19/25 @ 19:47 by JENNIFER Mccloud) Epistaxis (Acute) Sensorineural hearing loss, bilateral (Acute) Abnormal auditory perception of both ears (Acute) Metatarsalgia, right foot (Acute) Ingrown toenail (Acute) Lumbar spondylosis (Acute) Mechanical low back pain (Acute) History of excessive cerumen (Acute) Stress fracture (Acute) Cellulitis (Acute) COVID (Acute ~11/2023) Edema (Acute) Pain in right foot (Acute) Nondisplaced fracture of third metatarsal bone, right foot, initial encounter for closed fracture (Acute) Nondisplaced fracture of second metatarsal bone, right foot, initial encounter for closed fracture (Acute) Impacted cerumen of both ears (Acute) Cervicalgia (Acute) Pre-procedural cardiovascular examination (Acute) Abnormal stress echocardiogram (Acute) Mitral valve prolapse (Acute) Ventricular hypokinesis (Acute) Throat discomfort (Acute) Conductive hearing loss, external ear (Acute) Impacted cerumen of right ear (Acute) Breast cancer (Chronic) Frozen shoulder (Acute) Hiatal hernia (Chronic) GERD (gastroesophageal reflux disease) (Chronic) Carotid artery plaque (Acute) Herpes simplex vulvovaginitis (Acute) Other osteoporosis without current pathological fracture (Chronic) Prolia injections, pt reports first one 11/2018. needs twice yearly x5yrs. Medical History CRPS (complex regional pain syndrome), lower limb Surgical History History of wisdom tooth extraction History of lumpectomy of right breast Two surgeries on right breast (one required wider margins, lumpectomy) with LN dissection. 8 chemo rounds and radiation. Family History Maternal Aunt Breast cancer Colon cancer Mother , age 91 Depression Hypertension Dementia Maternal Aunt Diabetes Paternal Uncle Heart disease Sister , Age 66 Uterine cancer Father No problems noted. Social History Smoking/Tobacco Use Status: Never Smoking risk assessment performed?: Yes Alcohol Intake: current Alcohol Intake frequency: a few times a week Alcohol type: wine Drug use: Never Substance use type: does not use Household members: spouse Housing: house Do you need help understanding health information?: Rarely current occupation: Musician, Self-Employed Sexually active: No Do you think of yourself as: straight/heterosexual Current gender identity: female What is your relationship status?: Panel score (0-1 are the most socially isolated patients): 1 What type of physical activity do you participate in: walking, regular exercise and yoga Duration: 15-30 minutes/day Frequency: 3-4 times per week Special mony needs: No Seatbelt use: always Drive intox or ride w/intox driver starting gate: No Working smoke detector in home: Yes Carbon monox detector in home: Yes Do you feel safe at home: Yes Do you feel safe in your relationship?: Yes Female Reproductive History Menstrual Duration of menses: >10 days
[2025-03-19 19:28] LABS: HCT 37.0 % (36.0-46.0); HGB 12.4 g/dL (11.2-15.7)
[2025-03-19] MEDS: Oxymetazolone 0.05% SPRAY 15 ML BTL NS (19:40)
[2025-03-19 20:14] VITALS: RESP 16
== END 2025-03-19 20:18 | disposition home or self-care (01) ==
LOC: ER 20:04
PROVIDERS: Emergency Provider Physician Assistant; PCP Family Medicine
DX: R04.0 Epistaxis (principal)
CPT/HCPCS: 99283 ×2; 30901; 36415; 85014; 85018